=== PATIENT | male | born 1950 | race Caucasian/White ===

== ENCOUNTER 2023-05-28 06:13 | Day surgery (SDC) | payer MEDICARE, OTHER ==
[2023-05-27 10:56] LABS: BASOPHILS # (AUTO) 0.1 X10'3 (0-0.2); BASOPHILS % (AUTO) 0.7 % (0-1); EOSINOPHILS # (AUTO) 0.3 X10'3 (0-0.9); EOSINOPHILS % (AUTO) 3.5 % (0-6); HEMATOCRIT 42.6 % (42.0-52.0); HEMOGLOBIN 14.5 g/dl (14.0-17.9); LYMPHOCYTES # (AUTO) 2.4 X10'3 (1.1-4.8); LYMPHOCYTES % (AUTO) 32.6 % (21-51); MEAN CORPUSCULAR HEMOGLOBIN 32.3 PG (27.0-31.0); MEAN CORPUSCULAR HGB CONC 34.1 g/dL (33.0-36.5); MEAN CORPUSCULAR VOLUME 94.9 FL (78-98); MEAN PLATELET VOLUME 8.2 FL (7.4-10.4); MONOCYTES # (AUTO) 0.6 X10'3 (0-0.9); MONOCYTES % (AUTO) 8.4 % (2-12); NEUTROPHILS # (AUTO) 4.1 X10'3 (1.8-7.7); NEUTROPHILS % (AUTO) 54.8 % (42-75); PLATELET COUNT 291 X10'3 (140-440); RED BLOOD COUNT 4.49 X10'6 (4.70-6.10); WHITE BLOOD COUNT 7.4 X10'3 (4.5-11.0)
[2023-05-27 11:02] LABS: ALBUMIN 3.5 G/DL (3.4-5.0); ANION GAP 9 (8-16); BLOOD UREA NITROGEN 19 MG/DL (7-18); BUN/CREATININE RATIO 16.7 (10.0-20.0); CHLORIDE 104 MMOL/L (99-107); CREATININE 1.14 MG/DL (0.60-1.10); GLUCOSE 95 MG/DL (70-104); POTASSIUM 3.7 MMOL/L (3.5-5.1); SODIUM 141 MMOL/L (135-145); TOTAL CARBON DIOXIDE 27.8 MMOL/L (24-32); eGFR 63 ML/MIN
[2023-05-27 11:03] LABS: APTT 29 SECONDS (22-32); PROTHROMBIN TIME 11.2 SECONDS (9.0-12.0)
[~2023-05-28] VITALS: Ht 175.3 cm; Wt 116.9 kg
[2023-05-28] VITALS (11 sets, daily range): BP systolic 123–153; BP diastolic 76–92; PULSE 72–92; RESP 12–15; TEMP 97.8; O2SAT 93–96
[~2023-05-28 06:13] MED LIST: ASPI-1265 PO; FOLI0.8T22 PO; HYDR-3717 PO; PANT40TA54 PO; THIA50TA10 PO; TRAZ-251 PO; VENL150T3 PO
[2023-05-28] MEDS ORDERED: normal saline 1,000 ML IV SCH (06:35)
[2023-05-28] MEDS ORDERED: diphenhydrAMINE 25mg capsule PO PRN (06:35)
[2023-05-28] MEDS ORDERED: LORazepam 0.5 MG tablet PO PRN (06:35)
[2023-05-28] MEDS ORDERED: PRAV20TA4 PO (06:38)
[2023-05-28] MEDS ORDERED: LISI10TA27 PO (06:53)
[2023-05-28] MEDS ORDERED: ASPI-10 PO (06:53)
[2023-05-28] MEDS ORDERED: OMEP20TA23 PO (06:53)
[2023-05-28] MEDS ORDERED: VENL150C58 PO (06:53)
[2023-05-28] MEDS ORDERED: LIDOcaine 1% (10mg/ml) 2ml vial ONE (07:01)
[2023-05-28] MEDS ORDERED: verapamil 2.5 mg/ml inj IV ONE (07:01)
[2023-05-28] MEDS ORDERED: fentaNYL/PF 50MCG/1 ML 2ML syringe ONE (07:01)
[2023-05-28] MEDS ORDERED: midazolam 1 mg/ML 2ml injection ONE (07:02)
[2023-05-28] MEDS ORDERED: iohexol 350MG/ML 100ml bottle IV ONE ×2 (07:02→08:22)
[2023-05-28] MEDS ORDERED: iohexol 350 MG/ML 50ML vial IV ONE (07:02)
[2023-05-28] MEDS ORDERED: nitroGLYCERIN 500mcg/5mL D5W 0 ML IV ONE (07:02)
[2023-05-28] MEDS ORDERED: heparin 1,000unit/ml 10ml vial 10 ML ONE (07:02)
[2023-05-28] MEDS ORDERED: nitroGLYCERIN 500mcg/5mL D5W 5 ML IV ONE (07:26)
[2023-06-01 06:46] LABS: ISTAT HGB MIX 13.6 g/dl (14.0-17.9); ISTAT Hct MIX 40 %PCV (42-52); ISTAT O2 SATURATION MIX VENOUS 61 % (60-80); ISTAT SOURCE BLNK
[2023-06-01 06:46] LABS: ISTAT HGB ART 12.6 g/dl (14.0-17.9); ISTAT Hct ART 37 %PCV (42-52); ISTAT O2 SATURATION ARTERIAL 96 % (95-98); ISTAT SOURCE BLNK
== END 2023-05-28 13:55 | disposition home or self-care (01) ==
LOC: SSTAY O 06:13
PROVIDERS: ATTEND Internal Medicine Cardiovascular Disease
DX: I35.2 Nonrheumatic aortic (valve) stenosis with insufficiency (principal); I25.10 Atherosclerotic heart disease of native coronary artery without angina pectoris; I10 Essential (primary) hypertension; E78.5 Hyperlipidemia, unspecified; G47.33 Obstructive sleep apnea (adult) (pediatric); F32.A Depression, unspecified; F41.9 Anxiety disorder, unspecified; K21.9 Gastro-esophageal reflux disease without esophagitis; I27.20 Pulmonary hypertension, unspecified; E66.3 Overweight; Z68.37 Body mass index [BMI] 37.0-37.9, adult; I42.9 Cardiomyopathy, unspecified; Z98.890 Other specified postprocedural states; Z98.41 Cataract extraction status, right eye; Z98.42 Cataract extraction status, left eye; Z98.52 Vasectomy status; Z87.891 Personal history of nicotine dependence; Z79.01 Long term (current) use of anticoagulants; Z79.899 Other long term (current) drug therapy; Z82.49 Family history of ischemic heart disease and other diseases of the circulatory system
CPT/HCPCS: 36415; 76937; 80048; 82803; 85014; 85025; 85610; 85730; 93005; 93460; 93567; 99152; 99153; J1644; J2250; J3010; J3490; J7030; Q0163; Q9967; A6258; A6449; C1725; C1751; C1769; C1894